=== PATIENT | male | born 1945 | race Caucasian/White ===

== ENCOUNTER 2022-09-27 11:12 | Day surgery (SDC) | payer MEDICARE, OTHER ==
[2022-09-24 15:19] LABS: BASOPHILS % (AUTO) 0.7 % (0-1); EOSINOPHILS # (AUTO) 0.2 X10'3 (0-0.9); LYMPHOCYTES # (AUTO) 1.7 X10'3 (1.1-4.8); LYMPHOCYTES % (AUTO) 30.7 % (21-51); MEAN CORPUSCULAR HEMOGLOBIN 30.4 PG (27.0-31.0); MEAN CORPUSCULAR HGB CONC 33.2 g/dL (33.0-36.5); MEAN CORPUSCULAR VOLUME 91.7 FL (78-98); MEAN PLATELET VOLUME 8.3 FL (7.4-10.4); MONOCYTES # (AUTO) 0.4 X10'3 (0-0.9); MONOCYTES % (AUTO) 7.2 % (2-12); NEUTROPHILS # (AUTO) 3.2 X10'3 (1.8-7.7); NEUTROPHILS % (AUTO) 57.4 % (42-75); PRE OP HEMATOCRIT 46.1 % (42.0-52.0); PRE OP HEMOGLOBIN 15.3 g/dL (14.0-17.9); PRE OP PLATELET COUNT 185 X10'3 (140-440); RED BLOOD COUNT 5.03 X10'6 (4.70-6.10); RED CELL DISTRIBUTION WIDTH 13.5 % (11.5-14.5)
[2022-09-24 15:20] LABS: CLARITY,URINE CLEAR (Clear); COLOR,URINE YELLOW (Yellow); GLUCOSE, URINE NEGATIVE (Neg); KETONES,URINE NEGATIVE (Neg); LEUKOCYTE ESTERASE ,URINE NEGATIVE (Neg); NITRITES, URINE NEGATIVE (Neg); OCCULT BLOOD,URINE NEGATIVE (Neg); PH,URINE 5.5 (4.8-8.0); PROTEIN,URINE NEGATIVE (Neg)
[2022-09-24 15:21] LABS: ALBUMIN 3.5 G/DL (3.4-5.0); ALBUMIN/GLOBULIN RATIO 1.1 (1.1-1.5); ALKALINE PHOSPHATASE 103 IU/L (46-116); BLOOD UREA NITROGEN 17 MG/DL (7-18); BUN/CREATININE RATIO 14.2 (5.4-32.0); CALCIUM 9.3 MG/DL (8.5-10.1); CHLORIDE 106 MMOL/L (99-107); PRE OP ALT 25 U/L (30-65); PRE OP ANION GAP 5 (8-16); PRE OP AST 19 U/L (10-37); PRE OP BILIRUB, TOTAL 0.4 MG/DL (0.0-1.0); PRE OP GLUCOSE 99 MG/DL (70-104); PRE OP POTASSIUM 4.2 MMOL/L (3.4-5.1); PRE OP SODIUM 141 MMOL/L (135-145); TOTAL CARBON DIOXIDE 30.4 MMOL/L (24-32); TOTAL PROTEIN 6.8 G/DL (6.4-8.2); eGFR 58 ML/MIN
[2022-09-24 15:27] LABS: UA COLLECTION TYPE CLN CATCH MIDSTREAM
[~2022-09-27] VITALS: Ht 172.7 cm; Wt 86.9 kg
[2022-09-27] VITALS (9 sets, daily range): BP systolic 118–156; BP diastolic 59–85
[~2022-09-27 11:12] MED LIST: ASPI-611 PO; ATEN-27 PO; ATOR20TA66 PO; SERT-433 PO; ceFAZolin inj. 2,000 MG in dextrose 5%-water 100 ML IV ONE; famotidine 20mg tablet PO ONE; ringers solution, lacted 1,000 ML IV SCH
[2022-09-27] MEDS ORDERED: bacitracin 15gm ointment TP ONE (13:23)
[2022-09-27] MEDS ORDERED: BUPIVAcaine/PF 2.5 mg/ml (0.25%) 30ml vial ONE (13:23)
[2022-09-27] MEDS ORDERED: midazolam 1 mg/ML 2ml injection ONE (13:45)
[2022-09-27] MEDS ORDERED: fentaNYL/PF 50MCG/1 ML 2ML syringe ONE (13:45)
[2022-09-27] MEDS ORDERED: LIDOcaine 1%/PF 5ML 10 MG/ML VIAL ONE (13:47)
[2022-09-27] MEDS ORDERED: LIDOcaine 2% (20mg/ml) 5ml vial ONE (13:47)
[2022-09-27] MEDS ORDERED: dexamethasone sod phosphate 4mg/ml inj. ONE (13:49)
[2022-09-27] MEDS ORDERED: ePHEDrine 50MG/ML INJ. ONE (14:20)
[2022-09-27] MEDS ORDERED: succinylcholine 20mg/ml inj IV ONE (14:20)
[2022-09-27] MEDS ORDERED: ROPIVAcaine 0.5% (5mg/ml) 30ml vial ONE ×2 (14:20)
[2022-09-27] MEDS ORDERED: ondansetron/PF 4mg/2ml inj ONE (14:24)
--- NOTE | 2022-09-27 15:33 | NUR ---
Received from OR via [facility], accompanied by Anesthesiologist and report given by Anesthesiolgist. PT ARRIVES DROWSY BUT RESPONDS TO PHYSICAL AND VERBAL STIMULI, ON SIMPLE MASK O2, VSS. LEFT FOOT SPLINT DRY AND INTACT, TOES WARM TO TOUCH WITH POSITIVE CAP REFILL. PT RESTING COMFORTABLY WITH NO COMPLAINTS OF PAIN. Addendum: 09/27/22 at 1617 by Homer Ramirez RN Amended: Links added.
--- NOTE | 2022-09-27 17:03 | NUR ---
PT DISCHARGED INTO CARE OF SIGNIFICANT OTHER TO [facility] WITHOUT INCIDENT. PT DEMONSTRATED PROPER CRUTCH USE, DEMONSTRATED STANDING TO PIVOT TO SITTING MAINTAINING NWB TO LEFT LEG. PT DENIES PAIN, VSS. DC INSTRUCTIONS PROVIDED, VERBAL AND WRITTEN. Addendum: 09/27/22 at 1725 by Homer Ramirez RN Amended: Links added.
== END 2022-09-27 17:03 | disposition home or self-care (01) ==
LOC: PAS 11:12
PROVIDERS: ATTEND Podiatrist Foot & Ankle Surgery
DX: M21.6X2 Other acquired deformities of left foot (principal); M77.30 Calcaneal spur, unspecified foot; M92.60 Juvenile osteochondrosis of tarsus, unspecified ankle; F17.210 Nicotine dependence, cigarettes, uncomplicated; I10 Essential (primary) hypertension; Z79.899 Other long term (current) drug therapy; Z98.890 Other specified postprocedural states; Z88.6 Allergy status to analgesic agent; Z88.8 Allergy status to other drugs, medicaments and biological substances; Z79.82 Long term (current) use of aspirin; M19.072 Primary osteoarthritis, left ankle and foot; Z72.89 Other problems related to lifestyle; G89.18 Other acute postprocedural pain
CPT/HCPCS: 27650; 28119; 36415; 64445; 64447; 73600; 76942; 80053; 81003; 82948; 85025; 93005; A6222; C1713; J0330; J0690; J1100; J2250; J2405; J2795; J3010; J3490; J7030; J7060; J7120; Z7506; Z7508; Z7512; 76000; A4215; A4618; A6253; A6449; A7000